=== PATIENT | female | born 1970 | race Caucasian/White ===

== ENCOUNTER 2016-09-22 22:22 | Emergency (ER) | payer OTHER ==
[~2016-09-22] VITALS: Ht 154.9 cm; Wt 51.0 kg
[~2016-09-22 22:22] MED LIST: IBUP-232 PO; PERC5TAB12 PO; PROP60TA PO; ROBA750T PO; TRAM-388 PO; VIST50CA PO
[2016-09-22 22:28] VITALS: BP 140/90; PULSE 75; RESP 20; TEMP 98.1; O2SAT 98
[2016-09-23 00:10] VITALS: BP 126/72; PULSE 87; RESP 18; O2SAT 100
--- NOTE | 2016-09-23 00:26 | PD ---
HPI Chief Complaint: Back/ Neck Pain or Injury Time Seen by Provider: 00:16 Travel History International Travel<30 days: No Contact w/Intl Traveler<30days: No Traveled to known affect area: No History of Present Illness HPI The patient is a 46-year-old female that complains of low back pain which is bilateral but left greater than right that shoots down to her feet. She denies any bladder or bowel dysfunction. She does have numbness around the left foot. She denies any weakness. She is followed by a painter and grader cork Dr. Renteria. The family called the painter and grader cork but did not get any answer. It is after midnight at this time. She states she got good relief on the last visit when she was given Toradol and Phenergan. She is scheduled to get an MRI. [facility] Past Medical History Anxiety: Yes Cardiovascular Problems: Yes (HTN) Diminished Hearing: Yes (BILAT [place]) Hypertension: Yes Musculoskeletal: Yes (CHRONIC BACK PAIN) Psychiatric: Yes (PTSD ) Respiratory: Yes (ASTHMA, pneumonia, bronchitis) Immunizations Current: Yes ?: Not LMP: 2004 : 7 Para: 3 Past Surgical History Abdominal Surgery: Yes ("TUMMY TUCK", GASTRIC BYPASS) Section: Yes Gynecologic Surgery: Yes (BREAST AUG) Hysterectomy: Yes Social History Alcohol Use: Yes (7 DRINKS) Tobacco Use: Yes (1 PPD) Substance Use: No Allergies-Medications (Allergen,Severity, Reaction): Coded Allergies: Zofran (Verified Allergy, Severe, Swelling, 08/28/16) Monistat 7 (Verified Allergy, Unknown, 08/28/16) Morphine (Verified Allergy, Unknown, Itching, 08/28/16) Reported Meds & Prescriptions Reported Meds & Active Scripts Active Ibuprofen 600 Mg Tab 600 Mg PO Q8HR PRN Reported Vistaril (Hydroxyzine Pamoate) 50 Mg Cap 50 Mg PO TID Propranolol (Propranolol HCl) 60 Mg Tab 60 Mg PO DAILY Review of Systems Except as stated in HPI: all other systems reviewed are Neg Physical Exam Narrative GENERAL: The patient is alert, oriented 3 in moderate apparent distress with her back pain. Her vital signs are normal. SKIN: Warm and dry. HEAD: Atraumatic. Normocephalic. EYES: Pupils equal and round. No scleral icterus. No injection or drainage. ENT: No nasal bleeding or discharge. Mucous membranes pink and moist. NECK: Trachea midline. No JVD. CARDIOVASCULAR: Regular rate and rhythm. No murmur appreciated. RESPIRATORY: No accessory muscle use. Clear to auscultation. Breath sounds equal bilaterally. GASTROINTESTINAL: Abdomen soft, non-tender, nondistended. Hepatic and splenic margins not palpable. MUSCULOSKELETAL: No obvious deformities. No clubbing. No cyanosis. No edema. There is tenderness around the L4 area but no deformity is noted. Most of the tenderness is slightly to the left of L4. Straight leg raising is 0+1 bilaterally over the patella and 0+1 bilaterally over the Achilles. Pinprick is absent over the dorsum of the left foot. She can feel pressure sensation there. No muscle wasting is noted. NEUROLOGICAL: Awake and alert. No obvious cranial nerve deficits. Motor grossly within normal limits. Normal speech. PSYCHIATRIC: Appropriate mood and affect; insight and judgment normal. Data Data Last Documented VS Vital Signs Date Time Temp Pulse Resp B/P Pulse Ox O2 Delivery O2 Flow Rate FiO2 09/23/16 00:10 87 18 126/72 100 Room Air 09/22/16 22:28 98.1 [facility] Medical Decision Making Medical Screen Exam Complete: Yes Emergency Medical Condition: Yes Medical Record Reviewed: Yes Differential Diagnosis Herniated nucleus pulposus, sciatic nerve pain, acute muscle strain Narrative Course The patient may have a herniated disc. We will be awaiting the MRI for these results and the patient should follow-up with her pain management physician. Diagnosis Primary Impression: Low back pain Additional Instructions: Follow-up with Dr. Renteria. Give him a call and tell him that you had to come to the emergency department to get a shot. Disposition: 01 DISCHARGE HOME Condition: Stable Jonathan Acharya MD Sep 23, 2016 00:26
[2016-09-23] MEDS ORDERED: ORPHENADRINE INJ 60 MG/2 ML AMP IM ONE (00:30)
[2016-09-23] MEDS ORDERED: KETOROLAC TROMETHAMINE 60 MG/2 ML (IM) VIAL IM ONE (00:30)
[2016-09-23] MEDS ORDERED: PROMETHAZINE INJ 25 MG/ML VIAL IM ONE (00:30)
== END 2016-09-23 01:22 | disposition home or self-care (01) ==
LOC: PHED 22:22
DX: M54.5 Low back pain (principal); I10 Essential (primary) hypertension; F10.10 Alcohol abuse, uncomplicated; F17.210 Nicotine dependence, cigarettes, uncomplicated
CPT/HCPCS: 96372; 99283; J1885; J2360; J2550

== ENCOUNTER 2016-10-30 19:58 | Emergency (ER) | payer BC, OTHER ==
[~2016-10-30] VITALS: Ht 154.9 cm; Wt 52.5 kg
[~2016-10-30 19:58] MED LIST changes: -PERC5TAB12 PO; -ROBA750T PO; -TRAM-388 PO
[2016-10-30 20:08] VITALS: BP 140/80; PULSE 85; RESP 18; TEMP 99; O2SAT 97
[2016-10-30 20:15] VITALS: RESP 18; O2SAT 97
[2016-10-30] MEDS ORDERED: PERC5TAB12 PO (20:16)
[2016-10-30] MEDS ORDERED: ALPR.25 PO (20:16)
[2016-10-30] MEDS ORDERED: GABA100C4 PO (20:16)
[2016-10-30] MEDS ORDERED: SODIUM CHLOR 0.9% 1000 ML INJ 1,000 ML IV ONE (20:30)
[2016-10-30] MEDS ORDERED: THIAMINE INJ 100 MG in SODIUM CHLORIDE 0.9% INJ 100 ML IV ONE (20:30)
--- NOTE | 2016-10-30 20:30 | PD ---
HPI Chief Complaint: Pain: Acute or Chronic Time Seen by Provider: 20:10 Travel History International Travel<30 days: No Contact w/Intl Traveler<30days: No Traveled to known affect area: No History of Present Illness HPI 46-year-old female complains of confusion. Patient has history of alcohol abuse , lower extremity peripheral neuropathy. Patient states that he took Xanax 0.25 mg this morning. Patient drank about 6 alcoholic drinks today. Patient states that she started having confusion this afternoon. Patient states that she has mild aching headache. Patient states that she has mild blurring vision. Patient denies any neck pain. Patient denies any chest pain or shortness of breath. Patient denies abdominal pain. Patient denies any nausea vomiting diarrhea. Patient denies any fever chills. Patient denies any dysuria or frequency. Patient denies any vaginal discharge or bleeding. PFSH Past Medical History Anxiety: Yes Cardiovascular Problems: Yes (HTN) Diminished Hearing: Yes (BILAT [place]) Hypertension: Yes Musculoskeletal: Yes (CHRONIC BACK PAIN) Psychiatric: Yes (PTSD ) Respiratory: Yes (ASTHMA, pneumonia, bronchitis) Immunizations Current: Yes Tetanus Vaccination: Unknown Influenza Vaccination: Yes ?: Not LMP: partial hyst : 7 Para: 3 Past Surgical History Abdominal Surgery: Yes ("TUMMY TUCK", GASTRIC BYPASS) Section: Yes Gynecologic Surgery: Yes (BREAST AUG) Hysterectomy: Yes Social History Alcohol Use: Yes (7 DRINKS) Tobacco Use: Yes (1 PPD) Substance Use: No Allergies-Medications (Allergen,Severity, Reaction): Coded Allergies: Zofran (Verified Allergy, Severe, Swelling, 10/30/16) Monistat 7 (Verified Allergy, Unknown, 10/30/16) Morphine (Verified Allergy, Unknown, Itching, 10/30/16) Reported Meds & Prescriptions Reported Meds & Active Scripts Active Reported Xanax (Alprazolam) 0.25 Mg Tab 0.25 Mg PO Q6H PRN Percocet (Oxycodone-Acetaminophen) 5-325 mg Tab 1 Tab PO Q4H PRN Gabapentin 100 Mg Cap 100 Mg PO TID Propranolol (Propranolol HCl) 60 Mg Tab 60 Mg PO DAILY Review of Systems General / Constitutional: No: Fever Eyes: No: Visual changes HENT: No: Headaches Cardiovascular: No: Chest Pain or Discomfort Respiratory: No: Shortness of Breath Gastrointestinal: No: Abdominal Pain Genitourinary: No: Dysuria Musculoskeletal: No: Pain Skin: No Rash Neurologic: No: Weakness Psychiatric: No: Depression Endocrine: No: Polydipsia Hematologic/Lymphatic: No: Easy Bruising Physical Exam Narrative GENERAL: Well-nourished, well-developed patient. SKIN: Warm and dry. HEAD: Normocephalic. EYES: No scleral icterus. No injection or drainage. NECK: Supple, trachea midline. No JVD or lymphadenopathy. CARDIOVASCULAR: Regular rate and rhythm without murmurs, gallops, or rubs. RESPIRATORY: Breath sounds equal bilaterally. No accessory muscle use. GASTROINTESTINAL: Abdomen soft, non-tender, nondistended. MUSCULOSKELETAL: No cyanosis, or edema. BACK: Nontender without obvious deformity. No CVA tenderness. Neurologic exam: Patient awake and alert oriented 3. Patient moves all extremity well. No obvious focal neurological deficit. Data Data Last Documented VS Vital Signs Date Time Temp Pulse Resp B/P Pulse Ox O2 Delivery O2 Flow Rate FiO2 10/30/16 22:00 74 18 114/71 97 Room Air 10/30/16 20:08 99.0 Orders Complete Blood Count With Diff (10/30/16 20:23) Comprehensive Metabolic Panel (10/30/16 20:23) Urinalysis - C+S If Indicated (10/30/16 20:23) Thyroid Stimulating Hormone (10/30/16 20:23) Iv Access Insert/Monitor (10/30/16 20:23) Ecg Monitoring (10/30/16 20:23) Oximetry (10/30/16 20:23) Drug Screen, Random Urine (10/30/16 20:23) Alcohol (Ethanol) (10/30/16 20:23) Sodium Chlor 0.9% 1000 Ml Inj (Ns 1000 M (10/30/16 20:30) Thiamine Inj (Thiamine Inj) (10/30/16 20:30) Labs Laboratory Tests Test 10/30/16 10/30/16 21:25 21:30 Urine Color YELLOW Urine Turbidity CLEAR Urine pH 6.0 Urine Specific [place] 1.005 Urine Protein NEG mg/dL Urine Glucose (UA) NEG mg/dL Urine Ketones NEG mg/dL Urine Occult Blood NEG Urine Nitrite NEG Urine Bilirubin NEG Urine Leukocyte Esterase TRACE Urine WBC 0-2 /hpf Urine Squamous Epithelial 0-5 /hpf Cells Urine Bacteria RARE /hpf Microscopic Urinalysis Comment CULT NOT INDICATED Urine Opiates Screen NEG Urine Barbiturates Screen NEG Urine Amphetamines Screen NEG Urine Benzodiazepines Screen NEG Urine Cocaine Screen NEG Urine Cannabinoids Screen NEG White Blood Count 4.8 TH/MM3 Red Blood Count 3.75 MIL/MM3 Hemoglobin 11.6 GM/DL Hematocrit 35.0 % Mean Corpuscular Volume 93.2 FL Mean Corpuscular Hemoglobin 31.0 PG Mean Corpuscular Hemoglobin 33.2 % Concent Red Cell Distribution Width 17.2 % Platelet Count 215 TH/MM3 Mean Platelet Volume 7.8 FL Neutrophils (%) (Auto) 58.4 % Lymphocytes (%) (Auto) 24.1 % Monocytes (%) (Auto) 13.7 % Eosinophils (%) (Auto) 2.7 % Basophils (%) (Auto) 1.1 % Neutrophils # (Auto) 2.7 TH/MM3 Lymphocytes # (Auto) 1.2 TH/MM3 Monocytes # (Auto) 0.7 TH/MM3 Eosinophils # (Auto) 0.1 TH/MM3 Basophils # (Auto) 0.1 TH/MM3 CBC Comment DIFF FINAL Differential Comment Sodium Level 136 MEQ/L Potassium Level 3.9 MEQ/L Chloride Level 99 MEQ/L Carbon Dioxide Level 24.7 MEQ/L Anion Gap 12 MEQ/L Blood Urea Nitrogen 3 MG/DL Creatinine 0.51 MG/DL Estimat Glomerular Filtration 129 ML/MIN Rate Random Glucose 72 MG/DL Calcium Level 8.3 MG/DL Total Bilirubin 0.3 MG/DL Aspartate Amino Transf 95 U/L (AST/SGOT) Alanine Aminotransferase 81 U/L (ALT/SGPT) Alkaline Phosphatase 62 U/L Total Protein 7.0 GM/DL Albumin 3.8 GM/DL Thyroid Stimulating Hormone 2.540 uIU/ML 3rd Gen Ethyl Alcohol Level 218 MG/DL [facility] Medical Decision Making Medical Screen Exam Complete: Yes Emergency Medical Condition: Yes Interpretation(s) 22:54 PM. CBC within normal limit. CMP within normal limit. Calcium 8.3. AST 95. ALT 81. TSH normal. Alcohol 218. Urine drug screen negative. UA is negative. Differential Diagnosis Differential diagnosis including alcohol intoxication, electrolyte imbalance, dehydration, TIA, CVA. Narrative Course 46-year-old female with complaints of mental confusion. Patient has history of EtOH abuse and had Xanax this morning and alcohol today. Normal saline solution 1 L IV bolus. Thiamine 100 mg IV. Diagnosis Primary Impression: Alcohol intoxication Qualified Code: F10.120 - Alcohol intoxication, uncomplicated Patient Instructions: General Instructions Additional Instructions: Advised [facility] for detox. Follow-up with personal physician. Return as needed. Med/Other Pt SpecificInfo: No Change to Meds Disposition: 01 DISCHARGE HOME Condition: Stable Oneil Davis MD Oct 30, 2016 20:30
[2016-10-30 21:38] LABS: AUTOMATED NEUTROPHIL # 2.7 TH/MM3 (1.8-7.7); BASOPHIL # 0.1 TH/MM3 (0-0.2); BASOPHIL % 1.1 % (0.0-2.0); EOSINOPHIL # 0.1 TH/MM3 (0-0.4); EOSINOPHIL % 2.7 % (0.0-4.0); HEMO FLAGS DIFF FINAL; LYMPH % 24.1 % (9.0-44.0); LYMPHOCYTE # 1.2 TH/MM3 (1.0-4.8); MEAN CELL VOLUME 93.2 FL (80.0-100.0); MEAN CORPUSCULAR HGB CONC 33.2 % (32.0-36.0); MONO % 13.7 % (0.0-8.0); NEUT % 58.4 % (16.0-70.0); PLATELET COUNT 215 TH/MM3 (150-450); RED BLOOD COUNT 3.75 MIL/MM3 (4.00-5.30); RED CELL DISTRIBUTION WIDTH 17.2 % (11.6-17.2); WHITE BLOOD COUNT 4.8 TH/MM3 (4.0-11.0)
[2016-10-30 21:48] LABS: CHLORIDE 99 MEQ/L (98-107); POTASSIUM 3.9 MEQ/L (3.5-5.1); SODIUM (NA) 136 MEQ/L (136-145)
[2016-10-30 21:50] LABS: BLOOD, URINE NEG (NEG); GLUCOSE,URINE NEG (NEG); KETONE, URINE NEG (NEG); NITRITE,URINE NEG (NEG)
[2016-10-30 21:52] LABS: ANION GAP 12 MEQ/L (5-15); BICARBONATE 24.7 MEQ/L (21.0-32.0); BLOOD UREA NITROGEN 3 MG/DL (7-18)
[2016-10-30 21:55] LABS: ALT (GPT) 81 U/L (10-53); AST (GOT) 95 U/L (15-37); GLOMERULAR FILTRATION RATE 129 ML/MIN (>89)
[2016-10-30 21:55] LABS: URINE COLOR YELLOW (YELLW/STRAW)
[2016-10-30 21:57] LABS: TOTAL BILIRUBIN ADULT 0.3 MG/DL (0.2-1.0)
[2016-10-30 21:57] LABS: BACTERIA, URINE RARE /hpf; COMMENT (UR) CULT NOT INDICATED; CULTURE IF INDICATED CULT NOT INDICATED; SQUAMOUS EPITHELIAL CELL URINE 0-5 /hpf (0-5); WBC, URINE 0-2 /hpf (0-5)
[2016-10-30 21:58] LABS: ALKALINE PHOSPHATASE 62 U/L (45-117)
[2016-10-30 22:00] VITALS: BP 114/71; PULSE 74; RESP 18; O2SAT 97
[2016-10-30 22:07] LABS: AMPHETAMINE, URINE NEG (NEG)
[2016-10-30 22:08] LABS: BARBITURATES, URINE NEG (NEG)
[2016-10-30 22:12] LABS: COCAINE, URINE NEG (NEG)
[2016-10-30 23:33] VITALS: BP 121/70; PULSE 77; RESP 18; O2SAT 97
== END 2016-10-30 23:34 | disposition home or self-care (01) ==
LOC: PHED 19:58
DX: F10.120 Alcohol abuse with intoxication, uncomplicated (principal); I10 Essential (primary) hypertension; G62.9 Polyneuropathy, unspecified; F17.200 Nicotine dependence, unspecified, uncomplicated; Y90.7 Blood alcohol level of 200-239 mg/100 ml
CPT/HCPCS: 80053; 80307; 80320; 81001; 84443; 85025; 96365; 99285; J3411; J7030